=== PATIENT | male | born 1960 | race Caucasian/White ===

== ENCOUNTER 2025-01-13 09:17 | Emergency (ER) | payer MEDICARE, BC, SELFPAY ==
--- OUTSIDE RECORDS SUMMARY | 2025-01-13 09:19 | XMS_ITS | Clinical Summary ---
Author Organization [facility] Address [address] [place] [address] Care Team Providers Care Production Officer Name Role Phone Unavailable Primary Care Provider Unavailabl e Allergies Active Allergy Reactions Criticality Noted Date Comments Lisinopril Cough 05/14/2019 Medications esomeprazole (NEXIUM) 20 mg capsuleIndicatio ns:gastroesophag eal reflux disease Take 20 mg by mouth once daily before a meal. Indications: gastroesophageal reflux disease Active multivitamins-mi nerals-lutein (MULTIVITAMIN 50 PLUS) tab tablet Take 1 tablet by mouth once daily. Active blood sugar diagnostic (BLOOD GLUCOSE TEST) stripIndications :Type 2 diabetes mellitus without complication, without long-term current use of insulin (HC) As directed. Test 2-3 times per day until sugars are down 100 Each 05/23/20 19 Active aspirin chewable 81 mg chewable tabletIndication s:Cerebrovascula r accident (CVA), unspecified mechanism (HC) Take 1 tablet by mouth once daily with a meal. 30 tablet 05/23/20 19 Active blood-glucose meterIndications :Type 2 diabetes mellitus without complication, without long-term current use of insulin (HC) Dispense meter, test strips, lancets covered by pt ins. E11.65 NIDDM type II, uncontrolled - Test 2 times/day. Reason: High A1C 1 Each 03/31/20 21 Active metFORMIN (GLUCOPHAGE) 1,000 mg tabletIndication s:Type 2 diabetes mellitus without complication, without long-term current use of insulin (HC) TAKE 1 TABLET BY MOUTH TWICE A DAY WITH MEALS 60 Tablet 1 10/07/19 22 Active atorvastatin (LIPITOR) 40 mg tabletIndication s:Cerebrovascula r accident (CVA), unspecified mechanism (HC),Hyperlipide marybeth LDL goal <100 Take 1 Tablet (40 mg) by mouth at bedtime. 30 Tablet 02/03/20 22 Active amLODIPine (NORVASC) 5 mg tabletIndication s:Essential hypertension Take 1 Tablet (5 mg) by mouth once daily. 30 Tablet 02/03/20 22 Active levETIRAcetam (KEPPRA) 750 mg tabletIndication s:Seizure disorder (HC) Take 1 Tablet (750 mg) by mouth two times daily. 60 Tablet 02/03/20 22 Active Active Problems Problem Noted Date Diagnosed Date Controlled type 2 diabetes m ellitus with complication, without long-term current use of insulin 03/31/2021 Essential hypertension 05/23/2019 Tobacco abuse disorder 05/23/2019 Seizure disorder 05/20/2019 CVA (cerebral vascular accident) 05/14/2019 Overview (05/20/2019): Admission 05/2019, presented with aphasia, right sided weakness, right homonymous hemianopsia, suspected to be due to stroke but CT/MRI did not show any stroke. Subsequently believed to be due to seizure, but still possible an undetectable stroke contributed to symptoms. 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, left 08/21/2018 Nieto's esophagus without dysplasia 07/27/2017 Overview (07/27/2017): EGD 07/2017 Nieto's, proximal stricture, H pylori, repeat EGD in 1 year Hyperlipidemia LDL goal <100 07/06/2016 Type 2 diabetes mellitus wit hout complication, without long-term current use of insulin 05/10/2016 Immunizations Immunization Administration Dates Next Due COVID-19 vaccine (Moderna 100mcg/0.5mL) KAMRON PRYOR 01/27/2021 Family History Medical History Relation Name Comments Heart attack Brother Heart Disease Sister Relation Name Status Comments Brother Father Sister Alive Social History Tobacco Use Types Packs/Day Years Used Date Smoking Tobacco: Light Smoker Cigarettes 0.3 40 Smokeless Tobacco: Never Tobacco Cessation:Counseling Given: Yes Comments:Patient trying to quit, using the patch Alcohol Use Standard Drinks/Week Comments No 0 (1 standard drink = 0.6 oz pur e alcohol) PHQ-2 Answer Date Recorded PHQ-2 TOTAL SCORE 3 03/31/2021 Social Connections Answer Date Recorded Frequency of Communication with Friends and Fami ly Not on file 06/06/2021 Financial Resource Strain Answer Date R ecorded Difficulty of Paying Living Expenses Not on file 06/06/2021 Difficulty of Paying Living Expenses Not on file 06/06/2021 Sex and Gender Information Value Date Recorded Sex Assigned at Not on file Legal 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 Gender Identity Not on file Sexual Orientation Not on file Obstetrics History Last Filed Vital Signs Vital Sign Reading Time Taken Comments Blood Pressure 164/94 03/31/2021 1:00 PM CDT Pulse 78 03/31/2021 1:00 PM CDT Temperature 36.6 C (97.9 F) 04/29/2020 3:37 PM CIRCUITRY 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 Respiratory Rate 16 05/20/2019 9:00 AM CIRCUITRY 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 Oxygen Saturation 96% 03/31/2021 1:00 PM CDT Inhaled Oxygen Concentration - - Weight 106.9 kg (235 lb 9.6 oz) 03/31/2021 1:00 PM CDT Height 176 cm (5' 9.29) 03/31/2021 1:00 PM CDT Body Mass Index 34.5 03/31/2021 1:00 PM CDT Plan of Treatment Health Maintenance Due Date Last Done Comments Tetanus booster 1969 Hepatitis C screening for age 18-79 01/12/1976 Colonoscopy through age 75 2003 Pneumococcal series for age 50+ (1 of 1 - PCV) 01/12/2008 Zoster (shingles) series for age 50+ (1 of 2) 01/12/2008 BMI (ht and wt on same day) for age 18+ 03/31/2022 03/31/2021, 04/29/2020, 06/05/2019, Additional history exists Depression screening for age 12+ 03/31/2022 03/31/2021, 04/29/2020, 10/05/2018, Additional history exists COVID-19 vaccine series ( season) 2024 02/25/2021, 01/27/2021 Influenza Vaccine (#1) 2025 Lipids for age 45-75 03/31/2026 03/31/2021, 05/15/2019, 08/09/2018, Additional history exists RSV vaccine for adults or (1 - 1-dose 75+ series) 2033 Hepatitis B series for 19+ Aged Out N o longer eligible based on patient's age to complete this topic Medical Devices Implanted Type Area Fur Grader Device Identifier Shelf Expiration Date Model / Serial / Lot [id number] - [id number] Legion Oxinum Femoral Component Implanted:Qty: 1 on 03/27/2019 by Espinoza Rudd MD at [facility] Right: Knee [employer] 02/20/2028 [id number] / / [id number] - [id number] Jamila Tibial Baseplate Implanted:Qty: 1 on 03/27/2019 by Espinoza Rudd MD at [facility] Right: Knee [employer] 12/09/2028 [id number] / / [id number] - [id number] Jamila Patellar Component Implanted:Qty: 1 on 03/27/2019 by Espinoza Rudd MD at [facility] Right: Knee [employer] 12/09/2024 [id number] / / [id number] Cmnt Bone 40gm Rally Mv Ab - [id number] Implanted:Qty: 2 on 03/27/2019 by Espinoza Rudd MD at [facility] Right: Knee [employer] 08/04/2023 [id number] / / [id number] Lgn Ps High Flex Xlpe Sx 5-6 Implanted:Qty: 1 on 03/27/2019 by Espinoza Rudd MD at [facility] Right: Knee [employer] [id number] / / [id number] Procedures Procedure Name Priority Date/Time Associated Diagnosis Comments LIPID PANEL W REFLEX MEASURED LDL Routine 03/31/2021 12:47 PM CDT Hyperlipidemia LDL goal <100 from Last 3 Months or Most Recently Relevant to Health Maintenance Results * (ABNORMAL) LIPID PANEL W REFLEX MEASURED LDL (03/31/2021 12:47 PM CDT) CHOLESTEROL,TOTAL 180 100 - 199 mg/dL 03/31/2021 10:10 PM CDT [facility] TRIGLYCERIDES 247(H) <150 mg/dL 03/31/2021 10:10 PM CDT [facility] HDL CHOLESTEROL 42 >40 mg/dL 10:10 PM CDT [facility] NON-HDL CHOLESTEROL 138 <145 mg/dl 03/31/2021 10:10 PM CDT [facility] CHOL/HDL RATIO 4.29 <4.50 03/31/2021 10:10 PM CDT [facility] LDL CHOLESTEROL 89 <=130 mg/dL 03/31/2021 10:10 PM CDT [facility] VLDL CHOLESTEROL 49(H) <=30 mg/dL 03/31/2021 10:10 PM CDT [facility] PROVIDER ORDERED STATUS RANDOM 03/31/2021 10:10 PM CDT [facility] Blood BLOOD SPECIMEN / Unknown Venipuncture / Unknown 03/31/2021 12:47 PM CDT 03/31/2021 12:47 PM CDT us Hair Thakkar MD CHEMISTRY Final Re sult [facility] [address] [place] [address], [place] from Last 3 Months or Most Recently Relevant to Health Maintenance Insurance BLUE CROSS OF NON-IA-ITS Advance Directives * Full Code (Latest Code Status on File) Date Activated Date Inactivated Comments 05/14/2019 10:50 AM 05/20/2019 6:26 PM * Full Code Date Activated Date Inactivated Comments 03/27/2019 8:54 AM 03/28/2019 4:26 PM Question Answer Comments Code Status Discussion: Discussed * Full Code Date Activated Date Inactivated Comments 10/06/2018 9:43 AM 10/06/2018 4:16 PM Question Answer Comments Code Status Discussion: Discussed
[2025-01-13 09:20] VITALS: BP 120/85; PULSE 99; RESP 22; TEMP 36.3; O2SAT 97; BMI 33.2
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
--- NOTE | 2025-01-13 09:40 | CRLHL7_ITS ---
For Patients: As a result of the Cures Act, medical imaging exams and procedure reports are released immediately into your electronic medical record. You may view this report before your referring provider. If you have questions, please contact your health care provider. INDICATION: Fall. Left rib pain. TECHNIQUE: Chest PA one-view. Left ribs three-views. FINDINGS: The cardiomediastinal silhouette, lung parenchyma, pulmonary vasculature and pleural surfaces are all normal in appearance. There is an old healed fracture of the left 4th rib. A very subtle slightly displaced fracture of the left 7th rib is suspected. IMPRESSION: Very subtle slightly displaced fracture of the left 7th rib is suspected. Dictated by Yan Loo MD @ 01/13/2025 10:41:56 AM (Electronically Signed)
--- NOTE | 2025-01-13 09:41 | CRLHL7_ITS ---
For Patients: As a result of the Cures Act, medical imaging exams and procedure reports are released immediately into your electronic medical record. You may view this report before your referring provider. If you have questions, please contact your health care provider. INDICATION: Fall. TECHNIQUE: Thoracic spine 3 views. FINDINGS: The thoracic kyphosis is somewhat accentuated. There is mild hypertrophic spurring of the lower thoracic spine. The cervicothoracic junction is normally aligned. There is no convincing fracture or dislocation. IMPRESSION: Negative for fracture or dislocation. Mild thoracic spondylosis. Dictated by Yan Loo MD @ 01/13/2025 10:46:55 AM (Electronically Signed)
--- NOTE | 2025-01-13 09:41 | CRLHL7_ITS ---
For Patients: As a result of the Century Cures Act, medical imaging exams and procedure reports are released immediately into your electronic medical record. You may view this report before your referring provider. If you have questions, please contact your health care provider. INDICATION: Fall. TECHNIQUE: Lumbar spine 3 views. Comparison : None. FINDINGS: The T12 ribs are somewhat hypoplastic. There is 1.5 cm of anterolisthesis L4 on L5. b=Bilateral pars defects are suspected. There is severe narrowing of the L4-5 intervertebral disc space. Intervertebral disc height is well maintained at the other levels. There is a small amount of atherosclerotic calcification within the abdominal aorta. IMPRESSION: There is 1.5 cm of anterolisthesis of L4 on L5 most likely due to bilateral pars defects. CT is suggested to exclude the possibility of an acute traumatic injury. Dictated by Yan Loo MD @ 01/13/2025 10:54:12 AM (Electronically Signed)
[2025-01-13 10:40] VITALS: BP 121/81; PULSE 102; RESP 20; O2SAT 95
--- NOTE | 2025-01-13 11:05 | CRLHL7_ITS ---
For Patients: As a result of the Century Cures Act, medical imaging exams and procedure reports are released immediately into your electronic medical record. You may view this report before your referring provider. If you have questions, please contact your health care provider. INDICATION: Fall. COMPARISON: 01/13/2025. TECHNIQUE: Noncontrast CT lumbar spine. FINDINGS: Grade 1-2 anterolisthesis of L4 on L5 measuring approximately 9 mm with associated bilateral pars defects. Otherwise, normal alignment. No fractures. No vertebral body loss of height. No fractures of the visualized lower ribs. T12-L1 L1-2 L2-3: No spinal canal or neural foraminal narrowing. L3-4: Annular bulge. No narrowing of spinal canal. No neural foraminal narrowing. L4-5: Grade 1 anterolisthesis. Disc degeneration and loss of disc height. Vacuum disc. Unroofed posterior disc bulge. Moderate narrowing of spinal canal. Oblique orientation of the bilateral foramina with moderate severe narrowing. L5-S1: Posterior disc bulge. No narrowing of spinal canal. No impingement of the traversing S1 nerve roots. No neural foraminal narrowing. Moderate arthropathy. Degenerative changes of the SI joints. Vascular calcifications. IMPRESSION: 1. Grade 1 anterolisthesis of L4 on L5. Associated bilateral pars defects. 2. Otherwise normal alignment. No fractures 3. At L4-5, moderate narrowing of the spinal canal. Moderate to severe narrowing of the bilateral neural foramina. Potential impingement of the L4 nerve roots. 4. No spinal canal or neural foraminal narrowing at the remaining levels Please note that all CT scans at this facility use dose modulation, iterative reconstruction, and/or weight-based dosing when appropriate to reduce radiation dose to as low as reasonably achievable. Dictated by Tristin Chao MD @ 01/13/2025 11:32:34 AM (Electronically Signed)
== END 2025-01-13 11:59 | disposition home or self-care (01) ==
PROVIDERS: Emergency Provider Family Medicine; PCP Family Medicine
DX: S22.32XA Fracture of one rib, left side, initial encounter for closed fracture (principal); W10.9XXA Fall (on) (from) unspecified stairs and steps, initial encounter
CPT/HCPCS: 71101; 72070; 72100; 72131; 99284

== ENCOUNTER 2025-05-10 19:17 | Emergency (ER) | payer MEDICARE, BC, SELFPAY ==
[2025-05-10] VITALS (16 sets, daily range): BP systolic 95–144; BP diastolic 64–95; PULSE 71–102; RESP 12–22; TEMP 36.7; O2SAT 94–98; BMI 29.5
--- OUTSIDE RECORDS SUMMARY | 2025-05-10 19:19 | XMS_ITS | Clinical Summary ---
Author Organization [facility] Address [address] [place] [address] Care Team Providers Care Beam Worker Name Role Phone Unavailable Primary Care Provider [...] on file Legal Sex Male 5:25 AM RESIDENT CARE COORDINATOR Gender Identity Not on file Sexual Orientation Not on file Obstetrics History Last Filed Vital Signs Vital Sign Reading Time Taken Comments Blood Pressure 164/94 03/31/2021 1:00 PM CDT Pulse 78 03/31/2021 1:00 PM CDT Temperature 36.6 C (97.9 F) 04/29/2020 3:37 PM RESIDENT CARE COORDINATOR Respiratory Rate 16 05/20/2019 9:00 AM RESIDENT CARE COORDINATOR Oxygen Saturation 96% 03/31/2021 1:00 PM CDT [...] Additional history exists COVID-19 vaccine series ( - 2024- season) 2025 02/25/2021, 01/27/2021 Influenza Vaccine (#1) 2025 Lipids for age 45-75 03/31/2026 03/31/2021, 05/15/2019, 08/09/2018, Additional history exists RSV vaccine for adults or (1 - 1-dose 75+ series) 2033 Hepatitis B series for 19+ Aged Out N o longer eligible based on patient's age to complete this topic Medical Devices Implanted Type Area Game Operator Device Identifier Shelf Expiration Date Model / Serial / Lot [id number] - [id number] Legion Oxinum Femoral Component Implanted:Qty: 1 on 03/27/2019 by Espinoza Rudd MD at [facility] Right: Knee [employer] 02/20/2028 [id number] / / [id number] - [id number] Jamila Tibial Baseplate Implanted:Qty: 1 on 03/27/2019 by Espinoza Rudd MD at [facility] Right: Knee [employer] 12/09/2028 [id number] / / [id number] - [id number] Jamila Patellar Component Implanted:Qty: 1 on 03/27/2019 by Espinoza Rudd MD at [facility] Right: Knee [employer] 12/09/2024 [id number] / / [id number] Bone 40gm Rally Mv Ab - [id number] Implanted:Qty: 2 on 03/27/2019 by Espinoza Rudd MD at [facility] Right: Knee [employer] 08/04/2023 [id number] / / [id number] Lgn Ps High Flex Xlpe Sx 5-6 Implanted:Qty: 1 on 03/27/2019 by Espinoza Rudd MD at [facility] Right: Knee [employer] [id number] / / [id number] Procedures Procedure Name Priority Date/Time Associated Diagnosis Comments LIPID PANEL W REFLEX MEASURED LDL Routine 03/31/2021 12:47 PM CDT Hyperlipidemia LDL goal <100 from Last 3 Months or Most Recently Relevant to Health Maintenance Results * (ABNORMAL) LIPID PANEL W REFLEX MEASURED LDL (03/31/2021 12:47 PM CDT) CHOLESTEROL,TOTAL 180 100 - 199 mg/dL 03/31/2021 10:10 PM CDT [facility] TRIGLYCERIDES 247(H) <150 mg/dL 03/31/2021 10:10 PM CDT [facility] HDL CHOLESTEROL 42 >40 mg/dL 10:10 PM CDT [facility] NON-HDL CHOLESTEROL 138 <145 mg/dl 03/31/2021 10:10 PM CDT [facility] CHOL/HDL RATIO 4.29 <4.50 03/31/2021 10:10 PM CDT [facility] LDL CHOLESTEROL 89 <=130 mg/dL 03/31/2021 10:10 PM CDT [facility] VLDL CHOLESTEROL 49(H) <=30 mg/dL 03/31/2021 10:10 PM CDT [facility] PROVIDER ORDERED STATUS RANDOM 03/31/2021 10:10 PM CDT [facility] Blood BLOOD SPECIMEN / Unknown Venipuncture / Unknown 03/31/2021 12:47 PM CDT 03/31/2021 12:47 PM CDT us Hair Thakkar MD CHEMISTRY Final Re sult [facility] [address] [place] [address], [place] from Last 3 Months or Most Recently Relevant to Health Maintenance Insurance BLUE CROSS OF NON-MT-ITS Advance Directives * Full Code (Latest Code [...]
--- NOTE | 2025-05-10 19:35 | ED.CHESTPAIN ---
HPI - Chest Pain General Date Seen: 05/10/25 Chief Complaint: Chest Pain Stated Complaint: having chest pain/ arms feel heavy/ weakness Time Seen by Provider: 05/10/25 19:35 Source: patient and RN notes reviewed Mode of arrival: ambulatory Limitations: no limitations History of Present Illness HPI narrative: Shantanu is a 65-year-old gentleman with a strong family history of coronary artery disease, personal history of type 2 diabetes unknown recent glucose values, history of GERD who comes to the emergency room with his for chest pain over the past 5 hours. This came on earlier today and has persisted across his chest. It does make both of his arms feel heavy and is radiating under his arms. He denies radiation to his jaw and he denies any back pain at this time. He denies any shortness of breath. He has not had cough cold or congestion. He did have a similar episode last month but did not seek medical attention. Denies lower extremity edema calf tenderness or history of DVT. He presents with his is very loving and supportive. He does use tobacco. Did have 2 episodes of vomiting that did make his chest pain feel better earlier today. States his pain has been a 5 to 6/10 all day. Describes this as ?pretty bad?. Related Data Home Medications ?Medication ?Instructions ?Recorded ?Confirmed aspirin 81 mg tablet,delayed 81 mg PO DAILY 01/13/25 01/13/25 release (Adult Aspirin Regimen) esomeprazole magnesium 20 mg 20 mg PO DAILY 01/13/25 01/13/25 capsule,delayed release (Nexium) Allergies Allergy/AdvReac Type Severity Reaction Status Date / Time No Known Drug Allergies Allergy Verified 01/13/25 09:26 Review of Systems Status of ROS Reports: 10 or more systems reviewed and unremarkable except as noted in History and below Narrative Past medical history: Tobacco use Type 2 diabetes does not do checks. Not currently on medication. Const Denies: fever, chills or fatigue Eyes Denies: change in vision ENMT Denies: throat pain, neck pain or nasal congestion Cardio Reports: chest pain; Denies: palpitations, edema, swelling of feet/ankles, lightheadedness or shortness of breath with exertion Resp Denies: shortness of breath or cough GI Reports: nausea and vomiting; Denies: abdominal pain or diarrhea Denies: painful urination Musculo Denies: back pain, neck pain or extremity pain Endo Denies: fatigue Exam Narrative Exam Narrative: Patient is alert and oriented. Mentation and speech normal. External ears eyes nose clear. Does smell of tobacco. Neck is supple. Heart with a regular rate and rhythm. Rather muffled heart sounds. Lungs are clear bilaterally. Abdomen soft nontender. No pain with palpation in the right upper quadrant. Lower extremities without edema calf tenderness. Moving all extremities without difficulty. Const Vital Signs, click to edit/add: Vital Signs - 24 hr 05/10/25 19:27 05/10/25 19:28 05/10/25 19:29 Temperature 98.0 F Pulse Rate Pulse Rate [Right Pulse Oximeter] 82 Respiratory Rate 20 12 16 Blood Pressure 130/92 H Blood Pressure [Right Upper Arm] 130/92 H Pulse Oximetry 98 Oxygen Delivery Method Room Air 05/10/25 19:30 05/10/25 19:37 05/10/25 19:46 Temperature Pulse Rate 86 71 Pulse Rate [Right Pulse Oximeter] Respiratory Rate 14 17 19 Blood Pressure 144/95 H 132/94 H Blood Pressure [Right Upper Arm] Pulse Oximetry 97 94 Oxygen Delivery Method 05/10/25 19:47 05/10/25 19:48 05/10/25 19:53 Temperature Pulse Rate 76 90 102 H Pulse Rate [Right Pulse Oximeter] Respiratory Rate 18 13 15 Blood Pressure 143/94 H 95/64 Blood Pressure [Right Upper Arm] Pulse Oximetry 94 95 95 Oxygen Delivery Method 05/10/25 19:56 05/10/25 20:00 05/10/25 20:03 Temperature Pulse Rate 97 86 85 Pulse Rate [Right Pulse Oximeter] Respiratory Rate 18 19 15 Blood Pressure 97/68 108/75 Blood Pressure [Right Upper Arm] Pulse Oximetry 94 94 95 Oxygen Delivery Method 05/10/25 20:05 05/10/25 20:11 05/10/25 20:15 Temperature Pulse Rate 84 85 93 Pulse Rate [Right Pulse Oximeter] Respiratory Rate 15 22 18 Blood Pressure 122/81 119/79 Blood Pressure [Right Upper Arm] Pulse Oximetry 95 95 95 Oxygen Delivery Method 05/10/25 20:22 Temperature Pulse Rate 87 Pulse Rate [Right Pulse Oximeter] Respiratory Rate 19 Blood Pressure 116/84 Blood Pressure [Right Upper Arm] Pulse Oximetry 96 Oxygen Delivery Method Documenting provider has reviewed patient's vital signs: yes Course Course ED Course: Differential diagnosis includes but is not limited to a acute coronary syndrome, angina, aortic dissection, GERD with esophageal spasm. Would also consider pneumonia. At this time will place IV. Suggest CBC, comprehensive, troponin, CRP. Will obtain chest x-ray as well. EKG, cardiac nurse practitioner, oximetry at this time. I strongly suspect this is cardiac in origin. Will give patient aspirin 324 mg p.o.. Reevaluation(s) Reevaluation #1: Nursing staff tells me that he has an elevated troponin high sensitivity at 114. 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 Occasional PVC. Suspect non-STEMI. Currently obtaining chest x-ray and will initiate heparin if that does not show widened mediastinum. Also currently contacting [facility]. Time 1951. Reevaluation #2: Patient moved to room 8. Patient noted to have increased pain after 1st nitro. Will give 2nd dose after checking blood pressure. Will also obtain second EKG. 1955: 2nd EKG now shows ST elevation in V2 V3 V4. Patient is now determined to be STEMI. Second call to [facility]. Have changed description of non-STEMI to STEMI. Will initiate heparin. Will hold off on ticagrelor until I speak to Cardiology. Blood pressure noted to have dropped to 90 systolic after nitroglycerin given. Patient responds very well to an IV bolus of saline blood pressure now 122. Initiating nitroglycerin drip. 1956: No evidence of widened mediastinum. Have initiated nitro drip as well as heparin 4000 unit bolus followed by a 1000 units/HR. Patient with improvement of his pain down to 2-3 with nitroglycerin. Color much improved. Blood pressure remaining steady 117 systolic. Pulse ranges from 80 to mid 90s. No ectopy at this time. Patient is informed that I would like to fly him to [facility] and he is adamantly against that. I do explain that this would expedite the process as long as they are flying and as long as they are not too far out. He states he is worried about the cost of air. I was honest with him and telling him that I do not know if his insurance would cover that. On the other hand he is not too excited about going by ground states that it is a very bumpy ride and he had to pay a lot of money for that. I did tell him that I will be checking to see how close areas. We do then determined that air is not flying this evening. EMS had come over to the hospital earlier was standing by and thus have made a decision to go by ground ALS. We will load the patient onto the gurney so that once we receive phone call from [facility] we can expedite this transfer process. 2006: We have not yet heard from [facility] and thus we call them once again. Patient still with pain around 2-3 but vital signs stable. 2017: We do receive a call from the transfer center. Evidently [facility] cardiologists are tied up and thus we are transferred to Dr. Eugene electrical controls technician from [facility]. Unfortunately the [address] way call does not work. They will try again. 2019: I am able to speak to Dr. Eugene, electrical controls technician from [facility]. He accepts patient in transfer and will activate cathead operator. EMS is already to go. Prior to departure we learned that is patient's blood sugar is 435. Nursing staff gives 10 units of regular insulin as patient is departing. Reevaluation #3: Patient's pain is holding at 3, will increase nitroglycerin. Blood pressure also stable at this time. Consultations Consultation #1: At 0820 and was able to speak to Dr. Kay electrical controls technician from [facility]. [facility] unfortunately not able to accept patient. Open cathead operator at [facility] and so that or patient will be going. Of electrical controls technician did not want patient to have ticagrelor or beta-kyle at this time. Vital Signs Vital signs: Initial Vital Signs Temperature 98.0 F 05/10/25 19:27 Temperature Source Temporal Artery Scan 05/10/25 19:27 Pulse Rate 82 05/10/25 19:27 Respiratory Rate 20 05/10/25 19:27 Blood Pressure 130/92 H 05/10/25 19:27 Blood Pressure Mean 104 05/10/25 19:27 Blood Pressure Position Sitting 05/10/25 19:27 Pulse Oximetry 98 05/10/25 19:27 Oxygen Delivery Method Room Air 05/10/25 19:27 Vital Signs Temperature 98.0 F 05/10/25 19:27 Pulse Rate 82 05/10/25 19:27 Respiratory Rate 20 05/10/25 19:27 Blood Pressure 130/92 H 05/10/25 19:27 Pulse Oximetry 98 05/10/25 19:27 Oxygen Delivery Method Room Air 05/10/25 19:27 Temperature 98.0 F 05/10/25 19:27 Pulse Rate 87 05/10/25 20:22 Respiratory Rate 19 05/10/25 20:22 Blood Pressure 116/84 05/10/25 20:22 Pulse Oximetry 96 05/10/25 20:22 Oxygen Delivery Method Room Air 05/10/25 19:27 Medications Administered Medications: Generic Name Dose Route Start Last Admin Trade Name Freq PRN Reason Stop Dose Admin Heparin Sodium/Dextrose 25,000 unit in 500 mls @ 0 mls/hr 05/10/25 20:00 05/10/25 20:10 Heparin IV 1,000 unit/hr .Q0M RAY 20 mls/hr Protocol Administration Per Protocol Nitroglycerin/Dextrose 25,000 mcg in 250 mls @ 3 mls/hr 05/10/25 19:57 05/10/25 20:15 Nitroglycerin/Dextrose IVPB 5 mcg/min .TITRATE PRN 3 mls/hr Protocol Administration 5 MCG/MIN Discontinued Medications Generic Name Dose Route Start Last Admin Trade Name Freq PRN Reason Stop Dose Admin Aspirin 324 mg 05/10/25 19:42 05/10/25 19:43 Aspirin 81 Mg Tab.Chew PO 05/10/25 19:43 324 mg ONCE ONE Administration Heparin Sodium (Porcine) 4,000 unit 05/10/25 19:57 05/10/25 20:09 Heparin 5,000 Unit/0.5 Ml Inj IVP 05/10/25 19:58 4,000 unit ONCE ONE Administration Insulin Human Regular 10 unit 05/10/25 20:40 05/10/25 20:32 Insulin Regular, Human 100 Unit/Ml Vial SUBCUT 05/10/25 20:41 10 unit ONCE ONE Administration Nitroglycerin 0.4 mg 05/10/25 19:42 05/10/25 19:51 Nitroglycerin 0.4 Mg Tab.Subl SUBLINGUAL 05/10/25 19:43 0.4 mg ONCE ONE Administration MDM - Chest Pain MDM Narrative Medical decision making narrative: 1. STEMI-patient initially had no ST changes noted on EKG but with increasing pain EKG showed elevation in V2 3 4 indicative of a anterior NJ. he is given aspirin 324, nitroglycerin sublingual and then drip and finally heparin bolus of 4000 units followed by a 1000 units/hr. At this time will hold off on ticagrelor and beta-kyle per Cardiology request. Delay in transfer secondary to [facility] being unable to accommodate our patient. Patient will now go to [facility] under the care of Dr. Eugene. Pain is improved but is not absent as he departs. EMS will increase nitroglycerin drip while continuing to watch blood pressure. Defibrillation pads are in place at this time. Patient has few PVCs but no significant arrhythmia at this time. Labs: Divot he point of care troponin 114. D-dimer 1.51 with no evidence of widened mediastinum or back pain on upon presentation. No signs of DVT. INR 0.93. 2. Previous NJ-EKG does show Q-waves in inferior and lateral leads I strongly suspect previous chest pain this month was a heart attack. 3. Hyperglycemia-patient known to have high 2 diabetes but I do not think he is compliant. Blood sugar 435. Will give 10 units of regular insulin at this time. 3. Disposition-patient will be ground ambulance ALS transfer to [facility] under the care of electrical controls technician. They have activated the cathead operator for this patient. Unfortunately, we do have a delay in transfer due to inability to contact electrical controls technician in spite of early notification. Fortunately we were able to change our destination to [facility] where they have activated the cathead operator and dissipation of this patient's arrival. White count 12.79. No evidence of pneumonia or other infection at this time. Mitral lytes within normal limits with a potassium of 4.2. Creatinine 0.9. Magnesium is low at 1.6. LFTs within normal limits. BNP is 184. Medical Records Data Attestation: I reviewed the patient's medical records. Lab Data Attestation: I reviewed the patient's lab results. Labs: Lab Results 05/10/25 Range/Units 19:30 WBC 12.79 H (4.50-11.00) K/uL RBC 5.26 (4.30-5.90) m/uL Hgb 16.7 (13.5-17.5) gm/dL Hct 48.3 (37.0-53.0) % MCV 92 (80-100) fL MCH 32 (26-34) pg MCHC 35 (32-36) gm/dL RDW Coeff of Elio 12.0 (11.5-15.5) % Plt Count 316 (140-440) K/uL Neut % (Auto) 73.2 H (42.0-72.0) % Lymph % (Auto) 15.4 L (20-44) % Millard % (Auto) 6.6 (0.0-11.0) % Eos % (Auto) 3.1 (0.0-7.0) % Baso % (Auto) 0.9 (0.0-3.0) % Neut # (Auto) 9.40 H (1.7-7.0) K/uL Lymph # (Auto) 2.00 (0.90-2.90) K/uL Millard # (Auto) 0.80 (0.00-0.90) K/UL Eos # (Auto) 0.40 (0.00-0.50) K/uL Baso # (Auto) 0.10 (0.00-0.30) K/uL Abs Immat Gran (auto) 0.10 (0.00-0.30) K/uL Imm/Tot Granulo (auto) 0.8 % INR 0.93 (0.91-1.10) D-Dimer Quant (PE/DVT) 1.51 H (0.00-0.50) ug/ml Sodium 135 (135-149) mmol/L Potassium 4.2 (3.6-5.1) mmol/L Chloride 96 (96-114) mmol/L Carbon Dioxide 25 (20-32) mmol/L Anion Gap 14 (7-15) mEq/L BUN 21 (7-30) mg/dL Creatinine 0.9 (0.5-1.5) mg/dL Estimated Creat Clear 71.68 Estimated GFR 94 ml/min Glucose 435 H* (60-115) mg/dL Calcium 9.6 (8.4-10.6) mg/dL Magnesium 1.6 (1.5-2.6) mg/dL Total Bilirubin 0.5 (0.1-1.5) mg/dL Direct Bilirubin 0.3 (0.0-0.5) mg/dL AST 22 (12-35) U/L ALT 24 (4-50) U/L Alkaline Phosphatase 142 (40-150) U/L POC Troponin I High Sensi 114 H* (2.9-28.0) pg/mL NT-Pro-B Natriuret Pep 184 (See Note) pg/mL Total Protein 7.1 (6.0-8.3) g/dL Albumin 4.1 (3.3-5.0) g/dL Lab Acknowledgement Test Added POC Creatinine 1.0 (0.6-1.3) mg/dl Imaging Data Chest x-ray: Attestation: I have reviewed the pertinent imaging results. My impression: By my read no evidence of widened mediastinum or infiltrate. ECG Data Attestation: I personally reviewed and interpreted this ECG as follows: ECG interpretation date: 05/10/25 Interpretation: By my read sinus rhythm with occasional premature supraventricular complexes. I do see what appears to be possible Q-waves in 2 3 the V5 and V6. I do not see any ST elevation tonight. Critical Care Time Critical Care Time Critical Care Time: Yes Attestation: The patient required my highest level preparedness to intervene emergently and I personally spent this critical care time directly and personally managing the patient. This critical care time included: Obtaining a history; Examining the patient; Pulse oximetry; Ordering and reviewing of studies; Arranging urgent treatment with development of a management plan; Evaluation of patients response to treatment; Frequent reassessment discussions with other providers. This critical care time was performed to assess and manage the high probability of imminent life-threatening deterioration that could result in multiorgan failure. It was exclusive of separate billable procedures and treating other patients and teaching time. Total Critical Care Time in Minutes: 105 Discharge Plan Discharge Prescriptions: No Action esomeprazole magnesium [Nexium] 20 mg capsule,delayed release(DR/EC) 20 mg PO DAILY aspirin [Adult Aspirin Regimen] 81 mg tablet,delayed release (DR/EC) 81 mg PO DAILY Follow Up/Referrals: Hair Thakkar MD [Primary Care Provider, [facility]]
[2025-05-10] MEDS: ASPIRIN 81 MG TAB.CHEW 324 MG PO (19:43)
--- NOTE | 2025-05-10 19:43 | CRLHL7_ITS ---
For Patients: As a result of the Century Cures Act, medical imaging exams and procedure reports are released immediately into your electronic medical record. You may view this report before your referring provider. If you have questions, please contact your health care provider. INDICATION: Chest pain COMPARISON: 01/13/2025 chest radiograph TECHNIQUE: Single frontal radiographic view(s) of the chest. FINDINGS: No substantial pleural effusion. No definite focal pulmonary consolidation. Normal heart size. No acute osseous findings. IMPRESSION: No acute thoracic findings. Dictated by Mahendra Baker MD @ 05/10/2025 8:03:33 PM (Electronically Signed)
[2025-05-10] MEDS: NITROGLYCERIN 0.4 MG TAB.SUBL SUBLINGUAL (19:51)
[2025-05-10 19:59] LABS: Creatinine, Point-of-Care* 1.0 mg/dl (0.6-1.3); Hematocrit* 48.3 % (37.0-53.0); Hemoglobin* 16.7 gm/dL (13.5-17.5); Immature Granulocytes Abs Auto 0.10 K/uL (0.00-0.30); Immature Granulocytes Pct Auto 0.8 %; Mean Corpuscular HGB Conc 35 gm/dL (32-36); Mean Corpuscular Hemoglobin 32 pg (26-34); Mean Corpuscular Volume 92 fL (80-100); RDW Coefficient of Variation % 12.0 % (11.5-15.5); Red Blood Count* 5.26 m/uL (4.30-5.90); White Blood Count* 12.79 K/uL (4.50-11.00)
[2025-05-10 20:00] LABS: Lymphocytes Absolute Auto 2.00 K/uL (0.90-2.90); Slide Review Reflex No
[2025-05-10] MEDS: HEPARIN 5,000 UNIT/0.5 ML INJ 4000 UNIT IVP (20:09)
[2025-05-10] MEDS: HEPARIN 25,000 UNIT/500 ML BAG 20 UNIT IV (20:10)
[2025-05-10 20:11] LABS: Albumin* 4.1 g/dL (3.3-5.0); Chloride* 96 mmol/L (96-114); Potassium* 4.2 mmol/L (3.6-5.1); Sodium* 135 mmol/L (135-149)
[2025-05-10 20:13] LABS: Blood Urea Nitrogen* 21 mg/dL (7-30); Creatinine* 0.9 mg/dL (0.5-1.5); Est. Creatinine Clearance* 71.68; Estimated Glomerular Filt Rate 94 ml/min
[2025-05-10 20:14] LABS: Alanine Aminotransferase* 24 U/L (4-50); Alkaline Phosphatase* 142 U/L (40-150); Anion Gap 14 mEq/L (7-15); Aspartate Amino Transferase* 22 U/L (12-35); Bilirubin Direct* 0.3 mg/dL (0.0-0.5); Bilirubin Total* 0.5 mg/dL (0.1-1.5); Calcium* 9.6 mg/dL (8.4-10.6); Carbon Dioxide* 25 mmol/L (20-32); Total Protein* 7.1 g/dL (6.0-8.3)
[2025-05-10 20:15] LABS: INR 0.93 (0.91-1.10); Prothrombin Time 13.2 Seconds
[2025-05-10] MEDS: NITROGLYCERIN/DEXTROSE 25,000 MCG/250 ML BOTTLE 3 MCG IVPB (20:15)
[2025-05-10 20:18] LABS: D Dimer Quantitative* 1.51 ug/ml (0.00-0.50)
[2025-05-10 20:24] LABS: Glucose* 435 mg/dL (60-115); NT Pro B Type NatriureticPept* 184 pg/mL (See Note)
[2025-05-10] MEDS: INSULIN REGULAR, HUMAN 100 UNIT/ML VIAL 10 UNIT SUBCUT (20:32)
--- NOTE | 2025-05-10 20:45 | PC.NURSE ---
called to given report to [place], [facility] sawyer team on way to hospital, will call back for report
== END 2025-05-10 20:35 | disposition short-term general hospital (02) ==
PROVIDERS: Emergency Provider Family Medicine; PCP Family Medicine
DX: I21.3 ST elevation (STEMI) myocardial infarction of unspecified site (principal); E11.65 Type 2 diabetes mellitus with hyperglycemia; Z79.4 Long term (current) use of insulin
CPT/HCPCS: 36415; 71045; 80048; 80076; 82565; 83735; 83880; 84484; 85025; 85379; 85610; 93005; 99285; 99291; A9270; J1644

== ENCOUNTER 2025-05-10 20:18 | Outpatient (CLI) | payer MEDICARE, BC, SELFPAY | END 2025-05-10 20:19 | disposition home or self-care (01) | LOC: AMB 05-13 20:51 | PROVIDERS: PCP Family Medicine; Visit Provider Family Medicine | DX: I21.3 ST elevation (STEMI) myocardial infarction of unspecified site (principal) | CPT/HCPCS: A0425; A0434 ==